=== PATIENT | female | born 1985 | race African-American/Black ===

== ENCOUNTER 2024-09-05 10:56 | Emergency (ER) | payer MEDICAID, OTHER ==
[~2024-09-05] VITALS: Ht 160 cm; Wt 113.6 kg
--- NOTE | 2024-09-05 11:21 | ED.PDOC ---
GI ASSESSMENT HPI Comments HPI: Poor Historian. 38-year-old female presents to the emergency department for evaluation of suprapubic pain that is nonradiating. No alleviating or precipitating factors. Pain is intermittent. Denies any other associated symptoms. Denies any vaginal bleeding. Denies any possibility of . Vitals: Temp:99.0F Heart rate: 96 RR: 20 BP: 138/79 02 sat: 98% on room air PMH: DENIES PSH: TUBAL LIGATION, 3X C-SECTIONS Social history: DENIES tobacco use, ENDORSES ETOH use, DENIES drug use Meds: DENIES Allergies: NKDA REVIEW OF SYSTEMS: CONSTITUTIONAL: Denies acute: fever, diaphoresis, chills, generalized weakness. HEAD: Denies acute: headache, photophobia Eyes: Denies acute: Double vision, vision loss, eye pain, eye discharge. EARS: Denies acute: tinnitus, hearing loss, ear discharge, ear pain, THROAT: Denies acute: sore throat, swelling, difficulty swallowing , pain with swallowing, change in voice. NECK: Denies acute: neck pain, neck swelling, stiff neck. HEART: Denies acute : chest pain, palpitations, LUNGS: Denies acute: SOB, wheezing, cough, hemoptysis ABDOMEN: Denies acute: Nausea, Vomiting, diarrhea, melena , hematemesis, hematochezia SKIN: Denies acute: rash, redness, lesions, itchiness. EXTREMITIES: Denies acute: calf pain, numbness, tingling, weakness, denies pain in extremity. Denies acute: Low back pain. Neuro: Denies acute: focal neurological deficit, motor or sensory focal neurological deficit, tremors, seizure like activity, confusion, dizziness, change in mental status, loss of bowel or bladder function, cauda equina like symptoms. : Denies acute: dysuria, hematuria, flank pain, increase in urinary frequency. PSYCH: Denies acute: hallucination, suicidal ideation, homicidal ideation. FEMALE: Denies acute: abnormal vaginal bleeding, foul odor, unusual discharge. PHYSICAL EXAM: General: no acute distress, awake and alert. Head: normocephalic, atraumatic. Neck: supple, trachea is midline, no swelling. Throat: Normal phonation. Eyes:, no erythema, no purulent discharge, no proptosis, no icterus. Heart: regular rate, regular rhythm, no significant murmur appreciated. Lungs: no apparent respiratory distress, Able to speak in full sentences. No wheezing, no rhonchi, no crackles. No stridors Clear to auscultation bilaterally. Abdomen: Suprapubic tender to palpation, non distended, soft, no guarding, no rebound, + bowel sounds. Neuro: Awake, Alert, oriented to name, self, situation, follows commands GCS=15. Speech is normal. Skin: no petechia, no purpura, no cyanosis, non-pale, not jaundice. Lower extremities: --no - Pitting edema no deformity, no focal swelling, no calf TTP. Makes eye contact. moves all four extremities. Face: no apparent facial droop. No CVA tenderness to percussion bilaterally. Ambulating in the ED independently. 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 Was a procedure done?: No GI differential Dx Differential Diagnosis: Other (DDX include Diverticulitis, colitis, gastroenteritis, acute abdomen, SBO, enteritis, constipation, volvulus, appendicitis, Gallbladder disease, choledocolithiasis, ascending cholangitis, pancreatitis, intraAbdominal mass/neoplasm, hepatitis, UTI, pylonephritis, k idney stone, aneurysm, dissection, Inflammatory bowel disease, gastroparesis, ischemic bowel, ovarian torsion, ovarian cyst/mass, tubo-ovarian abscess, , ectopic , PID, STD.) X-Ray, Labs, Meds, VS Vital Signs Date Time Temp Pulse Resp B/P (MAP) Pulse Ox O2 Delivery O2 Flow Rate FiO2 09/05/24 16:51 98.0 87 18 126/72 (90) 100 98.0 09/05/24 16:51 87 18 100 Room Air* 0 21 09/05/24 11:10 99.0 96 20 138/79 (98) 98 Lab Test 09/05/24 11:45 09/05/24 11:13 Range/Units White Blood Count 10.3 4.4-10.8 10^3/uL Red Blood Count 4.43 4.0-5.20 10^6/uL Hemoglobin 13.2 12.2-16.2 g/dL Hematocrit 39.4 36.0-46.0 % Mean Corpuscular Volume 89.0 80.0-100.0 fL Mean Corpuscular Hemoglobin 29.8 28.0-32.0 pg Mean Corpuscular Hemoglobin Concent 33.5 32.0-36.0 g/dL Red Cell Distribution Width 15.0 H 11.8-14.3 % Platelet Count 319 140-450 10^3/uL Mean Platelet Volume 8.1 6.9-10.8 fL Neutrophils (%) (Auto) 80.7 H 37.0-80.0 % Lymphocytes (%) (Auto) 12.3 10.0-50.0 % Monocytes (%) (Auto) 4.9 0.0-12.0 % Eosinophils (%) (Auto) 1.5 0.0-7.0 % Basophils (%) (Auto) 0.6 0.0-2.0 % Neutrophils # (Auto) 8.3 1.6-8.6 10 ^3/uL Lymphocytes # (Auto) 1.3 0.4-5.4 10 ^3/uL Monocytes # (Auto) 0.5 0-1.3 10 ^3/uL Eosinophils # (Auto) 0.2 0-0.8 10 ^3/uL Basophils # (Auto) 0.1 0-0.2 10 ^3/uL Nucleated Red Blood Cells 0.0 % Sodium Level 138 136-145 mmol/L Potassium Level 3.7 3.5-5.1 mmol/L Chloride Level 106 98-107 mmol/L Carbon Dioxide Level 28 20-31 mmol/L Anion Gap 4 L 5-15 Blood Urea Nitrogen 9 9-23 mg/dL Creatinine 0.69 0.550-1.02 mg/dL Glomerular Filtration Rate Calc 113 >90 mL/min BUN/Creatinine Ratio 13.0 10.0-20.0 Serum Glucose 103 74-106 mg/dL Lactic Acid Level 0.7 0.4-2.0 mmol/L Calcium Level 9.5 8.7-10.4 mg/dL Total Bilirubin 0.4 0.2-1.0 mg/dL Aspartate Amino Transferase (AST) 10 L 13-40 U/L Alanine Aminotransferase (ALT) 16 7-40 U/L Alkaline Phosphatase 86 46-116 U/L Total Protein 7.7 5.7-8.2 g/dL Albumin 4.6 3.2-4.8 g/dL Beta HCG, Quantitative 0.1 L 1.5-4.2 mIU/mL Urine Color Yellow Yellow Urine Clarity Clear Clear Urine pH 5.5 5.0-9.0 Urine Specific [place] 1.025 1.001-1.035 Urine Protein Trace H Negative Urine Ketones Negative Negative Urine Blood 1+ H Negative /uL Urine Nitrite Negative Negative Urine Bilirubin Negative Negative Urine Urobilinogen Normal Negative mg/dL Urine Leukocyte Esterase Negative Negative /uL Urine RBC 3 0 - 4 /hpf Urine WBC 1 0 - 5 /hpf Urine Squamous Epithelial Cells Few <5 /hpf Urine Bacteria None seen None Seen /hpf Urine Hyaline Casts Few 0 - 2 /lpf Urine Mucus Few None Seen Urine Glucose Normal Normal mg/dL [place] [address] Ph: [phone] DIAGNOSTIC IMAGING Diagnostic Imaging Report : [id number] Signed PATIENT: GEORGETTE MARIN ACCT: [id number] UNIT: [id number] : 1985 LOC: ER ROOM / BED: / AGE / SEX: 38 / F ADM STATUS: REG ER SERVICE 1342 ORDERING PHYSICIAN: YIFAN TORRES DO PROCEDURE(s): ABPL - CT AB PEL WO CON-NO ORAL OR IV REASON: suprapubic pain ORDER NUMBER(s): [id number], ACCESSION NUMBER(s): [id number] Exam: CT CT AB PEL WO CON-NO ORAL OR IV History: suprapubic pain Comparison Study: Same day pelvic ultrasound Technique: Multidetector CT of the abdomen and pelvis without contrast. Axial, coronal and sagittal multiplanar reformats were performed by the technologist on a separate workstation. Radiation Dose Information: CT Dose: CTDI volume is 26.35 mGy. Dose-length product is 1475.42 mGy*cm Findings: The lung bases are clear. Partially visualized heart is unremarkable. Mild hepatomegaly. Otherwise, liver, spleen, gallbladder, pancreas and adrenal glands unremarkable. Kidneys, ureters and urinary bladder are unremarkable. Redemonstration of 2.3 cm left ovarian cyst. Otherwise, uterus and adnexa are unremarkable. There is tissue extending from the anterior superior body of the uterus to the adjacent ventral lower abdominal musculature with focal outpouching of the uterus of the area. Small amount of free fluid within the cul-de-sac. Mild gastric wall thickening. Otherwise, stomach and small bowel loops are unremarkable. Appendix is unremarkable. Large bowel is unremarkable. No evidence of intraperitoneal free air. No evidence of aortic aneurysm. No significant lymphadenopathy. The soft tissues unremarkable. Tiny fat containing hiatal hernia. No destructive osseous lesions are noted. IMPRESSION: Gastric wall thickening from due to inadequate distention/gastritis. 2.3 cm left ovarian cyst. There is tissue extending from the anterior superior uterus to the ventral lower abdominal musculature with focal outpouching of the anterior superior uterus. Correlate for possible fibrotic tissue formation. Small amount of free fluid within the cul-de-sac which may be physiologic. ATED BY: MONSE MESA DO DICTATED DATE/TIME: 09/05/24 143 SIGNED BY: MONSE MESA DO SIGNED DATE/TIME: 09/05/24 143 CC: [place] [address] Ph: [phone] DIAGNOSTIC IMAGING Diagnostic Imaging Report : [id number] Signed PATIENT: GEORGETTE MARIN ACCT: [id number] UNIT: [id number] : 1985 LOC: ER ROOM / BED: / AGE / SEX: 38 / F ADM STATUS: REG ER SERVICE 1119 ORDERING PHYSICIAN: YIFAN TORRES DO PROCEDURE(s): PELUS - PELVIC REASON: suprapubic pain ORDER NUMBER(s): [id number], ACCESSION NUMBER(s): [id number] TRANSABDOMINAL AND ENDOVAGINAL PELVIC ULTRASOUND CLINICAL HISTORY: suprapubic pain TECHNIQUE: Multiple transabdominal and endovaginal grayscale sonographic images of the pelvis were obtained. Comparison: None FINDINGS: Uterus measures 13.6 x 5.8 x 6.9 cm. Uterus appears prominent in size and heterogeneous. There is no discrete leiomyoma identified. The endometrial stripe measures 8 mm. Right ovary measures 4.2 x 3.6 x 4.0 cm and the left measures 4.2 x 5.0 x 3.3 cm. There is a 2.3 cm left ovarian cyst. The right ovary grossly appears within normal limits. There is no evidence of an adnexal mass. There is free fluid seen within the cul-de-sac. IMPRESSION: 1. Enlarged uterus with heterogeneous myometrium. There is no discrete leiomyoma identified. 2. 2.3 cm left ovarian cyst. 3. Free fluid in the cul-de-sac. HS:Y ATED BY: OMI DONNELLY MD DICTATED DATE/TIME: 09/05/241315 SIGNED BY: OMI DONNELLY MD SIGNED DATE/TIME: 09/05/241315 CC: Time of 1ST Reevaluation: 15:07 (The case was discussed with the [facility] on- call team (HPI, physical exam, labs and diagnostic tests that were available at the time of disposition, ED course, treatment plan) on the phone. They recommended outpatient follow up with Dr. Chavez. Dr. Barry. ) Reevaluation 1ST: Unchanged Patient Education/Counseling: Diagnosis, Treatment Family Education/Counseling: No Family Present Comments Patient presented with the above HPI.---suprapubic pain---workup was initiated. patient was found with the above mentioned diagnosis. Patient ED course and VS have been stabilized. Patient has been reassessed in the ED and remained in a stable condition. Patient has been observed in the ED adequate length of time to insure improvement/stability. [facility] were consulted. patient was discharged home in a stable condition. All the reports of any imaging studies that were ordered by myself were reviewed by myself. Departure 1 Departure Time of Disposition: 16:04 Impression: Primary Impression: Abnormal finding on CT scan Additional Impressions: Ovarian cyst Suprapubic pain Disposition: 01 HOME / SELF CARE / HOMELESS Condition: Stable Additional Instructions: Additional discharge instructions: You MUST follow-up with your primary care/family doctor in 1 to 2 days. If you are unable to see your primary care/family doctor, please return to our emergency room for re-assessment and re-evaluation in 1 to 2 days. Return to the emergency room here in our facility or to the nearest ER [facility] if your symptoms change or worsen. CONSULTATIONS: you MUST Follow-up for consultation as soon as possible with: ---- Next Wednesday 9:[address] Lorenzo Office Please call for appointment. You MUST call the consultants office yourself to make an appointment. You may need to arrange that through your insurance and/or your primary/family doctor. If you are unable to see the [employer] consultant in 1 to 2 days, you must return to our emergency room (or any other ER of your choice) for re-assessment and re- evaluation. Adequate fluid hydration. Below is a copy of your radiological report for follow up: [place] [address] Ph: [phone] DIAGNOSTIC IMAGING Diagnostic Imaging Report : [id number] Signed PATIENT: GEORGETTE MARIN ACCT: [id number] UNIT: [id number] : 1985 LOC: ER ROOM / BED: / AGE / SEX: 38 / F ADM STATUS: REG ER SERVICE 1342 ORDERING PHYSICIAN: YIFAN TORRES DO PROCEDURE(s): ABPL - CT AB PEL WO CON-NO ORAL OR IV REASON: suprapubic pain ORDER NUMBER(s): [id number], ACCESSION NUMBER(s): [id number] Exam: CT CT AB PEL WO CON-NO ORAL OR IV History: suprapubic pain Comparison Study: Same day pelvic ultrasound Technique: Multidetector CT of the abdomen and pelvis without contrast. Axial, coronal and sagittal multiplanar reformats were performed by the technologist on a separate workstation. Radiation Dose Information: CT Dose: CTDI volume is 26.35 mGy. Dose-length product is 1475.42 mGy*cm Findings: The lung bases are clear. Partially visualized heart is unremarkable. Mild hepatomegaly. Otherwise, liver, spleen, gallbladder, pancreas and adrenal glands unremarkable. Kidneys, ureters and urinary bladder are unremarkable. Redemonstration of 2.3 cm left ovarian cyst. Otherwise, uterus and adnexa are unremarkable. There is tissue extending from the anterior superior body of the uterus to the adjacent ventral lower abdominal musculature with focal outpouching of the uterus of the area. Small amount of free fluid within the cul-de-sac. Mild gastric wall thickening. Otherwise, stomach and small bowel loops are unremarkable. Appendix is unremarkable. Large bowel is unremarkable. No evidence of intraperitoneal free air. No evidence of aortic aneurysm. No significant lymphadenopathy. The soft tissues unremarkable. Tiny fat containing hiatal hernia. No destructive osseous lesions are noted. IMPRESSION: Gastric wall thickening from due to inadequate distention/gastritis. 2.3 cm left ovarian cyst. There is tissue extending from the anterior superior uterus to the ventral lower abdominal musculature with focal outpouching of the anterior superior uterus. Correlate for possible fibrotic tissue formation. Small amount of free fluid within the cul-de-sac which may be physiologic. ATED BY: MONSE MESA DO DICTATED DATE/TIME: 09/05/24 143 SIGNED BY: MONSE MESA DO SIGNED DATE/TIME: 09/05/241432 CC: [place] [address] Ph: [phone] DIAGNOSTIC IMAGING Diagnostic Imaging Report : [id number] Signed PATIENT: GEORGETTE MARIN ACCT: [id number] UNIT: [id number] : 1985 LOC: ER ROOM / BED: / AGE / SEX: 38 / F ADM STATUS: REG ER SERVICE 1119 ORDERING PHYSICIAN: YIFAN TORRES DO PROCEDURE(s): PELUS - PELVIC REASON: suprapubic pain ORDER NUMBER(s): [id number], ACCESSION NUMBER(s): [id number] TRANSABDOMINAL AND ENDOVAGINAL PELVIC ULTRASOUND CLINICAL HISTORY: suprapubic pain TECHNIQUE: Multiple transabdominal and endovaginal grayscale sonographic images of the pelvis were obtained. Comparison: None FINDINGS: Uterus measures 13.6 x 5.8 x 6.9 cm. Uterus appears prominent in size and heterogeneous. There is no discrete leiomyoma identified. The endometrial stripe measures 8 mm. Right ovary measures 4.2 x 3.6 x 4.0 cm and the left measures 4.2 x 5.0 x 3.3 cm. There is a 2.3 cm left ovarian cyst. The right ovary grossly appears within normal limits. There is no evidence of an adnexal mass. There is free fluid seen within the cul-de-sac. IMPRESSION: 1. Enlarged uterus with heterogeneous myometrium. There is no discrete leiomyoma identified. 2. 2.3 cm left ovarian cyst. 3. Free fluid in the cul-de-sac. HS:Y ATED BY: OMI DONNELLY MD DICTATED DATE/TIME: 09/05/24 131 SIGNED BY: OMI DONNELLY MD SIGNED DATE/TIME: 09/05/241315 CC: Discharged With: Self Critical Care Note Critical Care Time?: No I personally scribed for YIFAN TORRES DO ([facility] on 09/05/24 at 11:21. Electronically submitted by All Hernandez ([email or web address]). I personally scribed for YIFAN TORRES DO ([email or web address]) on 09/05/24 at 11:46. Electronically submitted by All Hernandez ([email or web address]). I personally scribed for YIFAN TORRES DO ([facility]) on 09/05/24 at 16:07. Electronically submitted by All Hernandez ([email or web address]). YIFAN TORRES DO Sep 05, 2024 11:21
[2024-09-05 11:34] LABS: Urine Bacteria None Seen /hpf (None Seen)
[2024-09-05 11:43] LABS: Urine Blood 1+ /uL (Negative); Urine Clarity Clear (Clear); Urine Color Yellow (Yellow); Urine Hyaline Cast FEW /lpf (0 - 2); Urine Mucus FEW (None Seen); Urine Protein, UAD TRACE (Negative); Urine Specific Gravity 1.025 (1.001-1.035); Urine Urobilinogen Normal (Negative); Urine WBC 1 /hpf (0 - 5); Urine pH 5.5 (5.0-9.0)
[2024-09-05 12:03] LABS: Basophils # (auto) 0.1 10 ^3/uL (0-0.2); Basophils % (auto) 0.6 % (0.0-2.0); Eosinophils # (auto) 0.2 10 ^3/uL (0-0.8); Eosinophils % (auto) 1.5 % (0.0-7.0); Hematocrit 39.4 % (36.0-46.0); Hemoglobin 13.2 g/dL (12.2-16.2); Lymphocytes # (auto) 1.3 10 ^3/uL (0.4-5.4); Lymphocytes % (auto) 12.3 % (10.0-50.0); Mean Corpuscular Hemoglobin 29.8 pg (28.0-32.0); Mean Corpuscular Hgb Conc. 33.5 g/dL (32.0-36.0); Monocytes # (auto) 0.5 10 ^3/uL (0-1.3); Monocytes % (auto) 4.9 % (0.0-12.0); Neutrophils # (auto) 8.3 10 ^3/uL (1.6-8.6); Neutrophils % (auto) 80.7 % (37.0-80.0); Platelet Count (auto) 319 10^3/uL (140-450); Red Blood Cells 4.43 10^6/uL (4.0-5.20); White Blood Cell 10.3 10^3/uL (4.4-10.8)
[2024-09-05 12:42] LABS: Chloride 106 mmol/L (98-107); Potassium 3.7 mmol/L (3.5-5.1); Sodium 138 mmol/L (136-145)
[2024-09-05 12:45] LABS: Anion Gap 4 (5-15); Calcium 9.5 mg/dL (8.7-10.4); Carbon Dioxide 28 mmol/L (20-31)
[2024-09-05 12:50] LABS: Alkaline Phosphatase 86 U/L (46-116); Blood Urea Nitrogen 9 mg/dL (9-23); Glucose 103 mg/dL (74-106)
[2024-09-05 12:51] LABS: Alanine Aminotransferase 16 U/L (7-40); Aspartate Aminotransferase 10 U/L (13-40)
[2024-09-05 12:52] LABS: Albumin 4.6 g/dL (3.2-4.8); Bilirubin, Total 0.4 mg/dL (0.2-1.0); Total Protein 7.7 g/dL (5.7-8.2)
--- NOTE | 2024-09-05 13:18 | DVH ---
TRANSABDOMINAL AND ENDOVAGINAL PELVIC ULTRASOUND CLINICAL HISTORY: suprapubic pain TECHNIQUE: Multiple transabdominal and endovaginal grayscale sonographic images of the pelvis were obtained. Comparison: None FINDINGS: Uterus measures 13.6 x 5.8 x 6.9 cm. Uterus appears prominent in size and heterogeneous. There is no discrete leiomyoma identified. The endometrial stripe measures 8 mm. Right ovary measures 4.2 x 3.6 x 4.0 cm and the left measures 4.2 x 5.0 x 3.3 cm. There is a 2.3 cm l eft ovarian cyst. The right ovary grossly appears within normal limits. There is no evidence of an adnexal mass. There is free fluid seen within the cul-de-sac. IMPRESSION: 1. Enlarged uterus with heterogeneous myometrium. There is no discrete leiomyoma identified. 2. 2.3 cm left ovarian cyst. 3. Free fluid in the cul-de-sac. HS:Y
--- NOTE | 2024-09-05 14:35 | DVH ---
Exam: CT CT AB PEL WO CON-NO ORAL OR IV History: suprapubic pain Comparison Study: Same day pelvic ultrasound Technique: Multidetector CT of the abdomen and pelvis without contrast. Axial, coronal and sagittal m ultiplanar reformats were performed by the technologist on a separate workstation. Radiation Dose Information: CT Dose: CTDI volume is 26.35 mGy. Dose-length product is 1475.42 mGy*cm Findings: The lung bases are clear. Partially visualized heart is unremarkable. Mild hepatomegaly. Otherwise, liver, spleen, gallbladder, pancreas and adrenal glands unremarkable. Kidneys, ureters and urinary bladder are unremarkable. Redemonstration of 2.3 cm left ovarian cyst. Otherwise, uterus and adnexa are unremarkable. There is tissue extending from the anterior superior b venessa of the uterus to the adjacent ventral lower abdominal musculature with focal outpouching of the u terus of the area. Small amount of free fluid within the cul-de-sac. Mild gastric wall thickening. Otherwise, stomach and small bowel loops are unremarkable. Appendix is unremarkable. Large bowel is unremarkable. No evidence of intraperitoneal free air. No evidence of aortic aneurysm. No significant lymphadenopathy. The soft tissues unremarkable. Tiny fat containing hiatal hernia. No destructive osseous lesions are noted. IMPRESSION: Gastric wall thickening from due to inadequate distention/gastritis. 2.3 cm left ovarian cyst. There is tissue extending from the anterior superior uterus to the ventral lower abdominal musculatur e with focal outpouching of the anterior superior uterus. Correlate for possible fibrotic tissue form ation. Small amount of free fluid within the cul-de-sac which may be physiologic.
[2024-09-05 16:51] VITALS: BP 126/72; PULSE 87; RESP 18; TEMP 98; O2SAT 100
== END 2024-09-05 16:53 | disposition home or self-care (01) ==
LOC: ER 10:56
DX: N83.202 Unspecified ovarian cyst, left side (principal); R10.2 Pelvic and perineal pain; R93.89 Abnormal findings on diagnostic imaging of other specified body structures; Z98.890 Other specified postprocedural states
CPT/HCPCS: 36415; 74176; 76830; 76856; 80053; 81001; 83605; 84702; 85025